=== PATIENT | female | born 2000 | race Hispanic/Latino ===

== ENCOUNTER 2019-05-14 19:18 | Emergency (ER) | payer OTHER ==
[2019-05-14 19:52] LABS: BASOPHILS % (AUTO) 0.2 % (0.0-5.0); EOSINOPHILS % (AUTO) 0.4 % (0.0-8.0); HEMATOCRIT 37.1 % (36-48); LYMPHOCYTES % (AUTO) 7.7 % (21.0-51.0); MEAN CORPUSCULAR HEMOGLOBIN 33.6 pg (27.0-33.0); MEAN CORPUSCULAR HGB CONC 34.5 g/dL (32.0-36.0); MEAN CORPUSCULAR VOLUME 97.4 fL (80-100); MONOCYTES % (AUTO) 4.3 % (3.0-13.0); NEUTROPHILS % (AUTO) 87.1 % (40.0-77.0); PLATELET COUNT (AUTO) 353 K/uL (130-400); RED BLOOD CELL COUNT(AUTO) 3.81 MIL/uL (4.00-5.50); RED CELL DISTRIBUTION WIDTH 11.4 % (11.0-15.5); WHITE BLOOD COUNT (AUTO) 11.6 K/uL (4.8-10.8)
[2019-05-14 20:09] LABS: RAPID GROUP A STREP POSITIVE (NEGATIVE)
[2019-05-14 20:09] LABS: APPEARANCE,URINE Clear (CLEAR); BILIRUBIN,URINE Negative (NEGATIVE); COLOR,URINE Yellow (YELLOW); GLUCOSE, URINE (UA) Negative (NEGATIVE); KETONES,URINE Negative (NEGATIVE); LEUKOCYTE ESTERASE ,URINE Trace (NEGATIVE); NITRATE,URINE Negative (NEGATIVE); OCCULT BLOOD,URINE Negative (NEGATIVE); PROTEIN,URINE Negative (NEGATIVE)
[2019-05-14 20:11] LABS: HCG,QUAL RESULT POSITIVE (NEGATIVE)
[2019-05-14 20:18] LABS: CREATININE 0.7 mg/dL (0.5-1.5); POTASSIUM 3.5 mmol/L (3.5-5.1)
[2019-05-14 20:20] LABS: BACTERIA,URINE Few /HPF (None Seen); MUCUS,URINE Many LPF (None Seen); SQUAMOUS EPITHELIAL CELL,UR Many /HPF (0-2)
[2019-05-14 20:23] LABS: ALBUMIN 3.9 g/dL (3.5-5.0); BILIRUBIN,TOTAL 0.3 mg/dL (0.2-1.0); TOTAL PROTEIN, SERUM 7.5 g/dL (6.0-8.3)
== END 2019-05-14 22:08 | disposition home or self-care (01) ==
LOC: EDH 19:18
DX: O26.891 Other specified pregnancy related conditions, first trimester (principal); J02.0 Streptococcal pharyngitis; O26.851 Spotting complicating pregnancy, first trimester; Z3A.01 Less than 8 weeks gestation of pregnancy
CPT/HCPCS: 36415; 76801; 80053; 81001; 81025; 84702; 85025; 87804; 87880

== ENCOUNTER 2020-01-06 02:46 | Inpatient (IN) | payer OTHER ==
[~2020-01-06] VITALS: Ht 157.5 cm; Wt 77.1 kg
[2020-01-06] MEDS ORDERED: LACTATED RINGERS 1000ML 1,000 ML IV PRN (03:12)
[2020-01-06 03:39] LABS: HEMATOCRIT 34.5 % (36-48); MEAN CORPUSCULAR HEMOGLOBIN 34.4 pg (27.0-33.0); MEAN CORPUSCULAR HGB CONC 34.8 g/dL (32.0-36.0); MEAN CORPUSCULAR VOLUME 98.9 fL (80-100); RED BLOOD CELL COUNT(AUTO) 3.49 MIL/uL (4.00-5.50); RED CELL DISTRIBUTION WIDTH 13.3 % (11.0-15.5); WHITE BLOOD COUNT (AUTO) 9.3 K/uL (4.8-10.8)
[2020-01-06] MEDS ORDERED: EPHEDRINE SULFATE 50 MG/ML AMPULE IVP PRN (04:15)
[2020-01-06] MEDS ORDERED: MEPERIDINE-PF 50 MG/ML SYG IVP PRN (04:15)
[2020-01-06] MEDS ORDERED: OXYTOCIN 10 USP UNITS/ML 20 UNIT in LACTATED RINGERS 1000ML 1,000 ML IV SCH (04:15)
[2020-01-06] MEDS ORDERED: PROMETHAZINE HCL 25 MG/ML 1ML AMPULE IM PRN ×2 (04:15→09:00)
[2020-01-06] MEDS ORDERED: LACTATED RINGERS 500 ML 500 ML IV PRN (04:15)
[2020-01-06] MEDS ORDERED: NALOXONE HCL 0.4 MG/1 ML ML IV PRN (04:15)
[2020-01-06] MEDS ORDERED: ROPIVACAINE 0.2% 100ML VIAL 100 ML EP SCH (04:15)
[2020-01-06] MEDS ORDERED: OXYTOCIN-LR 20 UNITS/1000 ML 1,000 ML IV ONE (04:31)
[2020-01-06] MEDS: LACTATED RINGERS 1000ML 1,000 ML IV SCH ×2 (04:40→10:30)
[2020-01-06 05:04] VITALS: BP 114/78
[2020-01-06] MEDS ORDERED: CEFAZOLIN SODIUM 1 GM VIAL ONE (07:24)
[2020-01-06] MEDS ORDERED: CEFAZOLIN SODIUM 1 GM VIAL IVP PRN (07:30)
[2020-01-06] MEDS ORDERED: DURAMORPH PF1 MG/ML 10ML AMP IV ONE (07:46)
[2020-01-06] MEDS ORDERED: OXYTOCIN 10 USP UNITS/ML ONE (07:46)
[2020-01-06] MEDS ORDERED: CEFAZOLIN SODIUM 1 GM VIAL IVP ONE (07:52)
[2020-01-06] MEDS ORDERED: SODIUM CHLORIDE 0.9% 10 ML VIAL ONE (08:11)
[2020-01-06] MEDS ORDERED: PHENYLEPHRINE HCL 10 MG/ML 1ML VIAL IV ONE (08:11)
[2020-01-06] MEDS ORDERED: GLYCOPYRROLATE 1 MG/5 ML SYRINGE ONE (08:16)
[2020-01-06] MEDS ORDERED: ONDANSETRON HCL 4 MG/2 ML VIAL ONE (08:18)
[2020-01-06] MEDS ORDERED: OXYTOCIN-LR 20 UNITS/1000 ML 1,000 ML IV PRN (09:00)
[2020-01-06] MEDS ORDERED: SODIUM CHLORIDE 0.9% 10 ML VIAL IVP PRN (09:00)
[2020-01-06] MEDS ORDERED: MEPERIDINE-PF 75 MG/ML SYG IM PRN (09:00)
[2020-01-06] MEDS ORDERED: DEXTROSE 5 %-0.45 % NACL 1,000 ML IV PRN (09:00)
[2020-01-06] MEDS ORDERED: OXYTOCIN-LR 20 UNITS/1000 ML 1,000 ML IV SCH (09:15)
[2020-01-06] MEDS ORDERED: ONDANSETRON HCL 4 MG/2 ML VIAL IVP PRN (09:15)
[2020-01-06] MEDS ORDERED: DiphenhydrAMINE HCL 50 MG/ML VIAL IVP PRN (09:15)
[2020-01-06] MEDS ORDERED: NALOXONE HCL 0.4 MG/1 ML ML IVP PRN ×3 (09:15→09:30)
[2020-01-06 09:22] LABS: INR 0.9 (0.85-1.15); PARTIAL THROMBOPLASTIN TIME 28.7 SEC (26.3-35.5); PROTHROMBIN TIME 9.8 SEC (9.6-11.6)
[2020-01-06 09:31] LABS: ALBUMIN 2.1 g/dL (3.5-5.0); BILIRUBIN,TOTAL 0.2 mg/dL (0.2-1.0); CREATININE 0.7 mg/dL (0.5-1.5); POTASSIUM 3.4 mmol/L (3.5-5.1); TOTAL PROTEIN, SERUM 4.9 g/dL (6.0-8.3)
[2020-01-06 11:20] VITALS: BP 107/68
[2020-01-06 13:45] VITALS: BP 114/70
--- NOTE | 2020-01-06 13:45 | NUR ---
PT TRANSFERRED TO POST ROOM 111 IN STABLE CONDITION VIA BED. PT ACCOMPANIED BY NURSE, [employer], AND . PT LEFT WITH ALL BELONGINGS. PT TOLERATED TRANSFER WELL. NO S/S OF DISTRESS.
--- NOTE | 2020-01-06 13:45 | NUR ---
REPORT RECEIVED FROM Wendi ROJAS RN AND PATIENT CARE TRANSFERED AT THIS TIME. PT WAS GIVEN PERICARE AND NEW BAG OF LR WITH PITOCIN HUNG. VITAL SIGNS ARE STABLE AND PATIENT DENIES ANY PROBLEMS AT THIS TIME. BONDING WELL WITH .
[2020-01-06 16:00] VITALS: BP 103/62
--- NOTE | 2020-01-06 16:00 | NUR ---
PERICARE DONE AND LOCHIA IS SMALL. DENIES PAIN AND STATES RELIEF OF ITCHING AND NAUSEA WITH ZOFRAN GIVEN AFTER TRANSFER. PATIENT REMAINS STABLE AND VITAL SIGNS WNL.
--- NOTE | 2020-01-06 18:55 | NUR ---
REPORT GIVEN TO CASI HAILE L/D AND PATIENT CARE TRANSFERED AT THIS TIME. PERICARE WAS GIVEN PRIOR TO TRANSFER AND LOCHIA WAS SMALL. KRAUSE CATHETER WAS DRAINED FOR 650CC OF LIGHT CRYSTAL URINE. DENIES PAIN AND USING IS Q2H AT 2300.
[2020-01-06 19:51] VITALS: BP 109/70
--- NOTE | 2020-01-06 23:50 | NUR ---
PERICARE. PERIPAD AND BLUE PAD CHANGED
[2020-01-07] VITALS (7 sets, daily range): BP systolic 101–120; BP diastolic 56–74
--- NOTE | 2020-01-07 00:04 | NUR ---
INFORMED DR MENDEZ OF PT TEMP OF 100.1 AND REQUEST FOR PAIN MED FOR HEADACHE. ORDERS RECEIVED FOR TYLENOL
[2020-01-07] MEDS ORDERED: ACETAMINOPHEN EXTRA STRENGTH 500 MG TABLET PO PRN ×2 (00:15→08:45)
--- NOTE | 2020-01-07 04:20 | NUR ---
PT. VERBALIZED THAT HER HEADACHE PAIN IS 3 OUT OF 10 OF THE PAIN SCALE. SHE VERBALIZED THAT THE TYLENOL HELPED RELIEVED THE HEADACHE. PT. DOESN'T WANT PAIN MEDICINE AT THIS TIME.
--- NOTE | 2020-01-07 04:30 | NUR ---
ENCOURAGED PT. TO USE THE INCENTIVE SPIROMETER. PT. VERBALIZED UNDERSTANDING. VOLUME OF AIR INHALED IS 2000 CC AND PT. ABLE TO DO 10X . PT. TOLERATED WELL.
--- NOTE | 2020-01-07 04:30 | NUR ---
GOOD BONDING NOTED. PT. IS HOLDING HER BABY AND FINISHED .
[2020-01-07 06:45] LABS: HEMATOCRIT 25.9 % (36-48); MEAN CORPUSCULAR HEMOGLOBIN 34.4 pg (27.0-33.0); MEAN CORPUSCULAR HGB CONC 33.6 g/dL (32.0-36.0); MEAN CORPUSCULAR VOLUME 102.4 fL (80-100); RED BLOOD CELL COUNT(AUTO) 2.53 MIL/uL (4.00-5.50); RED CELL DISTRIBUTION WIDTH 13.4 % (11.0-15.5)
--- NOTE | 2020-01-07 07:55 | NUR ---
DRESSING REMOVED, INCISION DRY AND INTACT. KRAUSE CATHETER REMOVED WITH TIP INTACT. ASSISTED PATIENT TO SIDE OF THE BED TO EAT BREAKFAST. CALL LIGHT LEFT IN REACH, ADVISED PATIENT TO CALL WITH ANY NEEDS OR CONCERNS
[2020-01-07] MEDS ORDERED: ACETAMINOPHEN-CODEINE 300/30MG TAB PO PRN (08:45)
[2020-01-07] MEDS ORDERED: HYDROCODONE/ACETAMINOPHEN 5/325 MG TAB PO PRN (08:45)
[2020-01-07] MEDS ORDERED: DIPHENHYDRAMINE HCL 25 MG CAPSULE PO PRN (08:45)
[2020-01-07] MEDS ORDERED: IBUPROFEN 600 MG TABLET PO PRN (08:45)
[2020-01-07] MEDS ORDERED: BISACODYL 10 MG SUPP.RECT RC PRN (08:45)
[2020-01-07] MEDS: SIMETHICONE 80 MG TAB.CHEW PO PRN ×2 (09:13→21:12)
[2020-01-07] MEDS: DOCUSATE SODIUM 100 MG CAP PO SCH ×2 (09:13→21:12)
[2020-01-07] MEDS: IBUPROFEN 800 MG TAB PO SCH ×2 (09:18→18:23)
--- NOTE | 2020-01-07 12:35 | NUR ---
PATIENT SITTING UP IN CHAIR WITH BABY LATCHED TO LEFT BREAST SUCCESSFULLY.
--- NOTE | 2020-01-07 19:35 | NUR ---
STATUS TEMP AT 1900 WAS 100.6, ENCOURAGED TO PUSH FLUIDS, USE I S , ABD DISTENDED, DULCOLAX SUPPOSITORY OFFERED, WILL BREAST FEED NOW Addendum: 01/07/20 at 2305 by RENETTA SUNG LVN Amended: Links added.
[2020-01-08] MEDS: IBUPROFEN 800 MG TAB PO SCH ×2 (02:29→09:59)
[2020-01-08 03:02] VITALS: BP 113/69
[2020-01-08 07:18] VITALS: BP 111/77
[2020-01-08] MEDS: SIMETHICONE 80 MG TAB.CHEW PO PRN (08:55)
[2020-01-08] MEDS: DOCUSATE SODIUM 100 MG CAP PO SCH (08:55)
--- NOTE | 2020-01-08 10:15 | NUR ---
pt is discharged. verbal and written discharge instructions given, pls refer to exit care. informed of the follow up appointment. prescription given. informed to call the doctor for concerns. pt voiced understanding to all things discussed. Addendum: 01/08/20 at 1118 by DIANA LUNA RN Amended: Links added.
[2020-01-08 12:11] LABS: HEPATITIS Bs ANTIGEN SCREEN P Negative (Negative)
--- NOTE | 2020-01-08 12:40 | NUR ---
pt is dismissed with baby in stable condition, brought to private car via wheelchair by Flory kumar Addendum: 01/08/20 at 1244 by DIANA LUNA RN Amended: Links added.
== END 2020-01-08 12:40 | disposition home or self-care (01) | DRG 786 ==
LOC: EDH 02:46 → OBSVTOIN 02:47 → LDH 02:47 → WSH 13:44
PROVIDERS: ADMIT Obstetrics & Gynecology; ATTEND Obstetrics & Gynecology
PROC: 10D00Z1 Extraction of Products of Conception, Low, Open Approach (ICD-10-PCS; principal; 2020-01-06 07:30)
DX: O77.9 Labor and delivery complicated by fetal stress, unspecified (principal); O45.93 Premature separation of placenta, unspecified, third trimester; O69.1XX0 Labor and delivery complicated by cord around neck, with compression, not applicable or unspecified; Z37.0 Single live birth; Z3A.39 39 weeks gestation of pregnancy
CPT/HCPCS: 36415; 59510; 80053; 85027; 85384; 85610; 85730; 86592; 86850; 86900; 86901; 87340; 88307; A4344; G0378; J0690; J2274; J2370; J2405; J2590; J3490; J7120